=== PATIENT | female | born 1960 ===

== ENCOUNTER 2020-07-20 06:55 | Day surgery (SDC) | payer OTHER | END 2020-07-20 13:57 | disposition home or self-care (01) | LOC: CIR.AMB 06:55 | PROVIDERS: ATTEND Orthopaedic Surgery | DX: M75.121 Complete rotator cuff tear or rupture of right shoulder, not specified as traumatic (principal); M75.21 Bicipital tendinitis, right shoulder; Z20.822 Contact with and (suspected) exposure to COVID-19 ==